=== PATIENT | female | born 1960 | race Caucasian/White ===

== ENCOUNTER 2020-06-25 22:23 | Inpatient (IN) | payer MEDICAID ==
[~2020-06-25] VITALS: Ht 154.9 cm; Wt 43.0 kg
--- NOTE | 2020-06-25 22:44 | NUR ---
RESPIRATORY CALLED AT THIS TIME FOR BREATHING TREATMENT AND ABG
[2020-06-25 23:08] LABS: BASOPHILS 0.2 % (0-2); EOSINOPHILS 0.5 % (0-7); HEMATOCRIT 40.1 % (36.0-48.0); HEMOGLOBIN 13.5 g/dL (12-16); IMMATURE GRANULOCYTES 0.6 % (0-5); LYMPHOCYTE ABS# 1.46 10x3/uL (1.18-3.74); LYMPHOCYTES 13.6 % (15-50); MCH 28.8 pg (26.0-34.0); MCHC 33.7 g/dL (31.0-37.0); MCV 85.5 fL (80.0-100.0); MEAN PLATELET VOLUME 10.7 fL (7.4-10.4); NEUTROPHIL ABS# 7.99 10x3/uL (1.56-6.13); NEUTROPHILS 74.1 % (40-80); PLATELET COUNT 276 10x3/uL (130-400); RBC 4.69 10x6/uL (4.00-5.40); RDW 12.7 % (11.5-14.5); WBC 10.8 10x3/uL (4.8-10.8)
[2020-06-25 23:15] VITALS: BP 185/70
[2020-06-25 23:17] LABS: ANION GAP 8.4 mmol/L (8-16); CARBON DIOXIDE 32.9 mmol/L (21.0-32.0); CREATININE - SERUM 0.9 mg/dL (0.6-1.3); POTASSIUM - SERUM 3.3 mmol/L (3.5-5.1)
[2020-06-25 23:25] LABS: ALBUMIN 3.2 g/dL (3.4-5.0); BILIRUBIN - TOTAL 0.3 mg/dL (0.2-1.3); PROTEIN - SERUM 7.2 g/dL (6.4-8.2)
[2020-06-25 23:26] LABS: TROPONIN-I 0.016 ng/mL (0.000-0.060)
[2020-06-25 23:30] VITALS: BP 148/57
[2020-06-26 00:30] VITALS: BP 162/113
--- NOTE | 2020-06-26 01:07 | NUR ---
REPORT CALLED TO LOU RICARDO AT THIS TIME, WAITING ON RESULTS OF CTA TO [facility] EPT TO FLOOR.
[2020-06-26] MEDS ORDERED: NEURONTIN600 MG PO ×2 (02:28→02:29)
[2020-06-26 02:32] VITALS: BP 146/111; BMI 17.9
--- NOTE | 2020-06-26 02:39 | NUR ---
ADMISSION ASSESSMENT COMPLETE. PT HAS INVOLUNTARY MOVEMENTS, ESPICIALLY WITH UPPER BODY. SHE STATES " IT'S BECAUSE OF PLAYING WITH HER GRANDCHILDREN". DENIES ANY NEUROLOGICAL DIAGNOSIS.
--- NOTE | 2020-06-26 04:23 | NUR ---
PAGED DOCTOR FOR ORDERS
--- NOTE | 2020-06-26 07:00 | NUR ---
0700 BEDSIDE REPORT RECEIVED ASLEEP AWAKENS TO VOICE SOB [place]AG[place] O2 AT 6L/NC
[2020-06-26] MEDS ORDERED: GABAPENTIN100 MG (07:13)
[2020-06-26 07:40] VITALS: BP 151/68
--- NOTE | 2020-06-26 08:00 | NUR ---
0800INSTRUCTED ON IS USE WEAK EFFORT PULLING 250ML REFUSED SDC REFUSED LOVENOX EDUCATED PT ON PREVENTION OF BLOOD CLOTS
[2020-06-26 08:29] VITALS: BP 147/109
[2020-06-26 12:30] LABS: MAGNESIUM - SERUM 2.2 mg/dL (1.8-2.4)
[2020-06-26 12:37] LABS: APTT 29.8 SECONDS (22.8-39.4); INR 1.12 (0.85-1.17); PROTIME 13.3 SECONDS (11.6-15.0)
--- NOTE | 2020-06-26 16:00 | NUR ---
1600 PATIENT ACCIDENTALLY PULLED IV RESIGHTED TO RIGHT FOREARM
[2020-06-26 17:30] VITALS: BP 127/63
--- NOTE | 2020-06-26 19:41 | NUR ---
PATIENT RESTING IN BED WITH NO S/S OF DISTRESS. PATIENT DENIES NEEDS AT THIS TIME. BED IN LOWEST POSITION AND CALL LIGHT IN REACH. ENCOURAGED PATIENT TO CALL WITH NEEDS.
--- NOTE | 2020-06-26 20:46 | NUR ---
ADMINISTERED MEDS PER ORDERS. PATIENT SWAPNIL WELL. ENCOURAGED TO CALL WITH NEEDS.
[2020-06-27] VITALS: BP 126/48
[2020-06-27 04:00] VITALS: BP 115/55
[2020-06-27 06:50] LABS: BASOPHILS 0.1 % (0-2); EOSINOPHILS 0 % (0-7); HEMOGLOBIN 12.1 g/dL (12-16); IMMATURE GRANULOCYTES 1.1 % (0-5); LYMPHOCYTE ABS# 0.63 10x3/uL (1.18-3.74); LYMPHOCYTES 5.8 % (15-50); MCH 28.1 pg (26.0-34.0); MCHC 31.8 g/dL (31.0-37.0); MEAN PLATELET VOLUME 10.9 fL (7.4-10.4); MONOCYTES 6.8 % (2-11); NEUTROPHIL ABS# 9.42 10x3/uL (1.56-6.13); NEUTROPHILS 86.2 % (40-80); PLATELET COUNT 282 10x3/uL (130-400); RBC 4.31 10x6/uL (4.00-5.40); RDW 12.5 % (11.5-14.5); WBC 10.9 10x3/uL (4.8-10.8)
[2020-06-27 06:56] LABS: MCV 88.2 fL (80.0-100.0)
[2020-06-27 07:22] LABS: ALBUMIN 2.7 g/dL (3.4-5.0); ALKALINE PHOSPHATASE 64 U/L (30-120); ALT (SGPT) 17 U/L (10-68); BILIRUBIN - TOTAL 0.15 mg/dL (0.2-1.3); CALC OSMOLALITY 278 mosm/kg (275-300); CALCIUM 8.9 mg/dL (8.5-10.1); CHLORIDE - SERUM 101 mmol/L (98-107); CREATININE - SERUM 0.8 mg/dL (0.6-1.3); GLUCOSE 145 mg/dL (74-106); MAGNESIUM - SERUM 2.2 mg/dL (1.8-2.4); POTASSIUM - SERUM 4.9 mmol/L (3.5-5.1); PROTEIN - SERUM 6.3 g/dL (6.4-8.2); SODIUM 138 mmol/L (136-145); UREA NITROGEN 12 mg/dL (7-18); eGFR NON AFRICAN AMERICAN 78 mL/min (90-120)
[2020-06-27 08:58] VITALS: BP 136/61
--- NOTE | 2020-06-27 13:35 | NUR ---
PATIENT ON RA AND SP02 87% ON 2L/NC SP02 97%
[2020-06-27 13:53] VITALS: BP 152/65
[2020-06-27 14:11] VITALS: Ht 154.9 cm; Wt 43.0 kg
--- NOTE | 2020-06-27 15:50 | NUR ---
OT NOTE: PT COMPLETED ADL MOB WITH CGA. PT COMPLETED BED MOB WITH SBA. PT COMPLETED TOILET HYGIENE WITH MIN A. PT COMPLETED UB BATHING TASKS WITH SETUP. PT COMPLETED LB BATHING TASKS WITH MIN A. PT IS SOB WITH ADL TASK REQUIREMENT. [id number] THANK YOU,DG ROJAS
[2020-06-27 17:36] VITALS: BP 159/68
--- NOTE | 2020-06-27 18:23 | NUR ---
0700 BEDSIDE REPORT RECEIVED AWAKE ALERT ASSESSMENT COMPLETE 02 AT 3L/NC
--- NOTE | 2020-06-27 18:24 | NUR ---
0900 PT WORKING WITH PATIENT STATED PATIENT IS AD LEXA SWAPNIL WELL
--- NOTE | 2020-06-27 18:26 | NUR ---
1100 PT AMB TO BR WEARING SWAPNIL WELL
--- NOTE | 2020-06-27 18:26 | NUR ---
1730 WENT TO GIVE IV MED AND FOUND IV OUT PT NOT HAPPY WITH GETTING RESTUCK STATED SHE WANTS TI EAT HER DINNER FIRST
[2020-06-28] VITALS: BP 158/80
[2020-06-28 04:00] VITALS: BP 156/61
[2020-06-28 07:43] LABS: BASOPHILS 0.1 % (0-2); EOSINOPHILS 0 % (0-7); HEMATOCRIT 39.6 % (36.0-48.0); HEMOGLOBIN 12.8 g/dL (12-16); IMMATURE GRANULOCYTES 3.9 % (0-5); LYMPHOCYTE ABS# 1.32 10x3/uL (1.18-3.74); LYMPHOCYTES 11.8 % (15-50); MCH 28.3 pg (26.0-34.0); MCHC 32.3 g/dL (31.0-37.0); MCV 87.6 fL (80.0-100.0); MEAN PLATELET VOLUME 10.8 fL (7.4-10.4); MONOCYTES 9.7 % (2-11); NEUTROPHIL ABS# 8.33 10x3/uL (1.56-6.13); NEUTROPHILS 74.5 % (40-80); PLATELET COUNT 282 10x3/uL (130-400); RBC 4.52 10x6/uL (4.00-5.40); RDW 12.6 % (11.5-14.5); WBC 11.2 10x3/uL (4.8-10.8)
[2020-06-28 07:54] LABS: ALBUMIN 2.8 g/dL (3.4-5.0); ALKALINE PHOSPHATASE 61 U/L (30-120); ALT (SGPT) 18 U/L (10-68); BILIRUBIN - TOTAL 0.19 mg/dL (0.2-1.3); CALC OSMOLALITY 275 mosm/kg (275-300); CALCIUM 8.7 mg/dL (8.5-10.1); CARBON DIOXIDE 36.9 mmol/L (21.0-32.0); CHLORIDE - SERUM 99 mmol/L (98-107); CREATININE - SERUM 0.8 mg/dL (0.6-1.3); GLUCOSE 110 mg/dL (74-106); MAGNESIUM - SERUM 2.1 mg/dL (1.8-2.4); POTASSIUM - SERUM 4.4 mmol/L (3.5-5.1); PROTEIN - SERUM 5.8 g/dL (6.4-8.2); SODIUM 137 mmol/L (136-145); UREA NITROGEN 14 mg/dL (7-18); eGFR NON AFRICAN AMERICAN 78 mL/min (90-120)
--- NOTE | 2020-06-28 08:16 | NUR ---
ALERT AND ORIENTED. ASSESSMENT COMPLETE. DENIES NEEDS. BED LOW. CALL PHILIP AND PERSONAL ITEMS IN REACH. WILL CONTINUE TO MONITOR.
[2020-06-28 09:25] VITALS: BP 167/62
[2020-06-28 12:42] VITALS: BP 131/78
--- NOTE | 2020-06-28 13:56 | NUR ---
PT IN BED SUPINE, AAOX4 UPON ENTERING. HOOKED UP TO IV ABX, TOLERATING WELL. DENIES ANY NEEDS AT THIS TIME. BED IN LOWEST POSITION, BED RAILS X2, CALL LIGHT WITHIN REACH. WILL CONTINUE POC.
--- NOTE | 2020-06-28 15:31 | NUR ---
OT NOTE: PT COMPLETED BED MOB WITH SBA. PT COMPLETED ADL MOB WITH SBA TO TOILET. PT COMPLETED BUE AROM EXS TOLERATED. PT DOES REQUIRE REST BREAKS SECONDARY TO SOB WITH ACTIVITY. [id number] LARRY COONEY COTA
--- NOTE | 2020-06-28 16:06 | NUR ---
AAOX4 UPON ENTERING. ADMINISTERED MEDICATION, NO DIFFICULTIES. RESTING COMFORTABLY. DENIES ANY NEEDS AT THIS TIME. BED IN LOWEST POSITION, BED RAILS X2, CALL LIGHT WITHIN REACH. WILL CONTINUE POC.
[2020-06-28 18:14] VITALS: BP 152/108
[2020-06-28 20:00] VITALS: BP 150/75
--- NOTE | 2020-06-29 03:03 | NUR ---
I have reviewed this patient and I concur with the Shift Assessment completed by the Licensed Practical Nurse today this shift.
[2020-06-29 06:22] LABS: BASOPHILS 0.1 % (0-2); EOSINOPHILS 0.4 % (0-7); HEMATOCRIT 41.7 % (36.0-48.0); HEMOGLOBIN 13.3 g/dL (12-16); IMMATURE GRANULOCYTES 4.1 % (0-5); LYMPHOCYTE ABS# 1.85 10x3/uL (1.18-3.74); LYMPHOCYTES 23.7 % (15-50); MCH 28.2 pg (26.0-34.0); MCHC 31.9 g/dL (31.0-37.0); MCV 88.3 fL (80.0-100.0); MEAN PLATELET VOLUME 11.2 fL (7.4-10.4); MONOCYTES 11.6 % (2-11); NEUTROPHILS 60.1 % (40-80); PLATELET COUNT 280 10x3/uL (130-400); RBC 4.72 10x6/uL (4.00-5.40); RDW 12.5 % (11.5-14.5)
[2020-06-29 06:33] LABS: WBC 7.8 10x3/uL (4.8-10.8)
[2020-06-29 06:52] LABS: ALBUMIN 2.8 g/dL (3.4-5.0); ALKALINE PHOSPHATASE 58 U/L (30-120); ALT (SGPT) 17 U/L (10-68); BILIRUBIN - TOTAL 0.27 mg/dL (0.2-1.3); CALC OSMOLALITY 277 mosm/kg (275-300); CALCIUM 8.9 mg/dL (8.5-10.1); CARBON DIOXIDE 38.6 mmol/L (21.0-32.0); CHLORIDE - SERUM 100 mmol/L (98-107); CREATININE - SERUM 0.8 mg/dL (0.6-1.3); GLUCOSE 90 mg/dL (74-106); MAGNESIUM - SERUM 2.1 mg/dL (1.8-2.4); POTASSIUM - SERUM 4.2 mmol/L (3.5-5.1); PROTEIN - SERUM 6.1 g/dL (6.4-8.2); SODIUM 139 mmol/L (136-145); UREA NITROGEN 12 mg/dL (7-18); eGFR NON AFRICAN AMERICAN 78 mL/min (90-120)
--- NOTE | 2020-06-29 07:00 | NUR ---
WALKING ROUNDS. IN BED ON LEFT SIDE WITH EYES CLOSED. BREATHING EVEN AND NONLABORED, NO S/S OF DISTRESS NTOED AT THIS TIME. BED IN LOWEST POSITION, BED RAILS X2, CALL LIGHT WITHIN REACH. WILL CONTINUE POC.
--- NOTE | 2020-06-29 08:27 | NUR ---
AAOX4 UPON ENTERING. ADMINISTERED MORNING MEDICATION, NO DIFFICULTIES. RESTING COMFORTABLY. DENIES ANY NEEDS AT THIS TIME. WILL CONTINUE POC.
[2020-06-29 09:01] VITALS: BP 138/78
--- NOTE | 2020-06-29 11:18 | NUR ---
AAOX4 UPON ENTERING. HUNG IV ABX. COMPLAINS THAT IT HANDY. HUNG 500ML NS TO HELP WITH BURNING. HAPPY WITH THIS INTERVENTION. DENIES FURTHER NEEDS. WILL CONTINUE POC.
--- NOTE | 2020-06-29 12:33 | NUR ---
HUNG IV ABX, TOLERATING WELL. RESTING IN BED. DENIES FURTHER NEEDS AT THIS TIME. WILL CONTINUE POC.
[2020-06-29 13:55] VITALS: BP 126/67
--- NOTE | 2020-06-29 14:09 | NUR ---
Nutrition follow-up: Diet order: Regular PO intake is slowly improving Labs reviewed Wt: 94# +BM PO intake very slowly improving Recommendations: RDN ordering Ensure with meals May consider an appetite stimulant if po intake continues to be < 75% of meals RDN follow-up: 07/01/20
--- NOTE | 2020-06-29 15:16 | NUR ---
RESTING COMFORTABLY IN BED. ADMINISTERED MEDICATION, NO DIFFICULTIES. DENIES NEEDS. WILL CONTINUE POC.
--- NOTE | 2020-06-29 15:21 | NUR ---
OT NOTE: PT COMPLETED BUE AROM EXS. PT COMPLETED SUPINE TO SIT WITH SPV. PT COMPLETED FACE HYGIENE WITH SPV. PT COMPLETED SIT TO STAND WITH SPV. [phone] LARRY COONEY COTA
--- NOTE | 2020-06-29 17:08 | NUR ---
PRN TYLENOL FOR HEADACHE. RESTING COMFORTABLY IN BED. DENIES ANY NEEDS AT THIS TIME. WILL CONTINUE POC.
[2020-06-29 17:46] VITALS: BP 157/34
--- NOTE | 2020-06-29 19:24 | NUR ---
I have reviewed this patient and I concur with the Shift Assessment completed by the Licensed Practical Nurse today this shift.
[2020-06-29 20:00] VITALS: BP 173/86
--- NOTE | 2020-06-30 03:55 | NUR ---
I have reviewed this patient and I concur with the Shift Assessment completed by the Licensed Practical Nurse today this shift.
[2020-06-30 04:00] VITALS: BP 154/75
[2020-06-30 06:17] LABS: BASOPHILS 0.3 % (0-2); EOSINOPHILS 0.5 % (0-7); HEMATOCRIT 40.3 % (36.0-48.0); HEMOGLOBIN 13.3 g/dL (12-16); IMMATURE GRANULOCYTES 4.5 % (0-5); LYMPHOCYTE ABS# 1.73 10x3/uL (1.18-3.74); LYMPHOCYTES 22.9 % (15-50); MCH 28.7 pg (26.0-34.0); MEAN PLATELET VOLUME 10.8 fL (7.4-10.4); MONOCYTES 11.5 % (2-11); NEUTROPHIL ABS# 4.54 10x3/uL (1.56-6.13); NEUTROPHILS 60.3 % (40-80); PLATELET COUNT 240 10x3/uL (130-400); RBC 4.63 10x6/uL (4.00-5.40); RDW 12.6 % (11.5-14.5); WBC 7.5 10x3/uL (4.8-10.8)
[2020-06-30 06:33] LABS: ALBUMIN 2.8 g/dL (3.4-5.0); BILIRUBIN - TOTAL 0.27 mg/dL (0.2-1.3); CALCIUM 8.7 mg/dL (8.5-10.1); CARBON DIOXIDE 38.1 mmol/L (21.0-32.0); CREATININE - SERUM 0.9 mg/dL (0.6-1.3); MAGNESIUM - SERUM 2.1 mg/dL (1.8-2.4); POTASSIUM - SERUM 4.1 mmol/L (3.5-5.1); PROTEIN - SERUM 6.1 g/dL (6.4-8.2)
[2020-06-30 08:57] VITALS: BP 153/84; BP 160/89
[2020-06-30] MEDS ORDERED: NICODERM CQ1 EAC3 TRANSDERM (10:10)
[2020-06-30] MEDS ORDERED: IPRAT-ALBUT 0.5-3 ML UPD (10:10)
[2020-06-30] MEDS ORDERED: OMNICEF300 MG PO (10:10)
[2020-06-30] MEDS ORDERED: ZITHROMAX250 MG PO (10:10)
[2020-06-30] MEDS ORDERED: PERFOROMIS20 MCG/21 UPD (10:10)
[2020-06-30] MEDS ORDERED: PREDNISONE10 MG PO (10:11)
[2020-06-30] MEDS ORDERED: DELSYM30 MG/5 M1 PO (10:11)
[2020-06-30] MEDS ORDERED: PULMICORT0.5 MG/21 UPD (10:11)
[2020-06-30] MEDS ORDERED: MUCINEX600 MG PO (10:11)
[2020-06-30] MEDS ORDERED: FLORAJEN DIGES1 EACH PO (10:11)
[2020-06-30] MEDS ORDERED: PROTONIX40 MG PO (10:11)
[2020-06-30] MEDS ORDERED: TESSALON PERLE100 MG PO (10:11)
--- NOTE | 2020-06-30 11:50 | NUR ---
DISCHARGE INSTRUCTION REVIEWED AND SIGNED WITH PT, ALL QUESTIONS ANSWERED, PT VERBALIZED UNDERSTANDING, IV REMOVED, TIP INTACT, COVERED WITH GAUZE AND TAPE, PT AWAITING RIDE
--- NOTE | 2020-06-30 12:12 | MORECARE ---
CASE MANAGEMENT DISCHARGE SUMMARY PATIENT: CHRISTY SALDANA UNIT: [id number] ADM DATE: 06/26/20 AGE: 60 : 62 SEX: F ROOM/BED: [facility] AUTHOR: SERGE ARGUETA PHYSICIAN: REFERRING PHYSICIAN: RYDER SERNA DO DATE OF SERVICE: 06/30/20 Case Management Discharge Planning Summary DCP REVIEW SUMMARY ANTICIPATED D/C DATE: EXPECTED LOS : CASE STATUS: DCP Initiated INITIAL REVIEW: 06/26/2020 INITIAL REVIEWER: Roxanna Saini FINAL DISCHARGE DISPOSITION: : FINAL REVIEWER: FINAL REVIEW DATE: DCP Focus Questions & Answers QUESTION: ANSWER : PROVIDER NETWORKING REVIEW DATE: 06/30/2020 SERVICE TYPE: Durable Medical Equipment REVIEWER: Roxanna Saini PROVIDER: FINAL PROVIDER? : FINAL DATE/TIME: CT PATIENT: CHRISTY SALDANA ENCOUNTER: [id number] MEDICAL RECORD#: [id number] ADMISSION DATE: 06/26/2020 DISCHARGE DATE: ATTENDING MD: RYDER VIVAS : AGE: 60 MARITAL STATUS: S DC PLAN ID: [id number] FACILITY: [facility] PRINTED ON: 06/30/20 12:12 CT All edits/amendments must be made on the electronic document DICTATION DATE: 06/30/201211 CHEMICAL STRENGTH TESTER: ANTHONY 06/30/201211 RPT#: [id number] DC DATE: STATUS: ADM IN [facility] [address] [place] [address] END OF REPORT
--- NOTE | 2020-06-30 12:25 | MORECARE ---
CASE MANAGEMENT DISCHARGE SUMMARY PATIENT: CHRISTY SALDANA UNIT: [id number] ADM DATE: 06/26/20 AGE: 60 : 62 SEX: F [facility]: SERGE ARGUETA PHYSICIAN: REFERRING PHYSICIAN: RYDER SERNA DO DATE OF SERVICE: 06/30/20 Case Management Discharge Planning Summary COMMENTS ENTERED DATE: 06/30/20 12:12 CT COMMENT TYPE: Discharge Planning REVIEWER: Roxanna Saini CM MET WITH PATIENT AT BEDSIDE ABOUT DC PLANNING NEEDS. PATIENT WILL NEED OXYGEN AND NEBULIZER, [facility] IS DELIVERING OXYGEN TO PATIENT ROOM. PATIENT PLANS TO DC TO HOME TODAY AND STATES HER BOYFRIEND IS WORKING ON GETTING HER A RIDE HOME. HER PCP IS DR. LANDERS AT [facility] AND SHE USES [facility]. HER PHONE NUMBER ON HER FACE SHEET IS WRONG. SHE STATES IT IS [phone]. SHE STATES HER AND HER BOYFRIEND LIVE TOGETHER AND IT IS A SAFE DISCHARGE. CM TO FOLLOW AND ASSIST NEEDED. DCP REVIEW SUMMARY ANTICIPATED D/C DATE: EXPECTED LOS : CASE STATUS: DCP Initiated INITIAL REVIEW: 06/26/2020 INITIAL REVIEWER: Roxanna Saini FINAL DISCHARGE DISPOSITION: : FINAL REVIEWER: FINAL REVIEW DATE: DCP [employer] Questions & Answers QUESTION: ANSWER : PROVIDER NETWORKING REVIEW DATE: 06/30/2020 SERVICE TYPE: Durable Medical Equipment REVIEWER: Roxanna Saini PROVIDER: FINAL PROVIDER? : FINAL DATE/TIME: CT PATIENT: CHRISTY SALDAAN ENCOUNTER: [id number] MEDICAL RECORD#: [id number] ADMISSION DATE: 06/26/2020 DISCHARGE DATE: ATTENDING MD: RYDER VIVAS : AGE: 60 MARITAL STATUS: S DC PLAN ID: [id number] FACILITY: [facility] PRINTED ON: 06/30/20 12:25 CT All edits/amendments must be made on the electronic document DICTATION DATE: 06/30/201224 [employer] PROFESSOR: ANTHONY 06/30/20 1225 RPT#: [id number] DC DATE: STATUS: ADM IN [facility] [address] [place] [address] END OF REPORT
--- NOTE | 2020-06-30 13:00 | NUR ---
PT LEFT VIA WHEELCHAIR ASSISTED BY HOSPITAL STAFF
--- NOTE | 2020-07-01 14:07 | MORECARE ---
CASE MANAGEMENT DISCHARGE SUMMARY PATIENT: CHRISTY SALDANA UNIT: [id number] ADM DATE: 06/26/20 AGE: 60 : 62 SEX: F ROOM/BED: [facility] AUTHOR: SERGE ARGUETA PHYSICIAN: REFERRING PHYSICIAN: RYDER SERNA DO DATE OF SERVICE: 07/01/20 Case Management Discharge Planning Summary COMMENTS ENTERED DATE: 06/30/20 12:12 CT COMMENT TYPE: Discharge Planning REVIEWER: Roxanna Saini CM MET WITH PATIENT AT BEDSIDE ABOUT DC PLANNING NEEDS. PATIENT WILL NEED OXYGEN AND NEBULIZER, [facility] IS DELIVERING OXYGEN TO PATIENT ROOM. PATIENT PLANS TO DC TO HOME TODAY AND STATES HER BOYFRIEND IS WORKING ON GETTING HER A RIDE HOME. HER PCP IS DR. LANDERS AT [facility] AND SHE USES [facility]. HER PHONE NUMBER ON HER FACE SHEET IS WRONG. SHE STATES IT IS [phone]. SHE STATES HER AND HER BOYFRIEND LIVE TOGETHER AND IT IS A SAFE DISCHARGE. CM TO FOLLOW AND ASSIST NEEDED. DCP REVIEW SUMMARY ANTICIPATED D/C DATE: EXPECTED LOS : CASE STATUS: DCP Initiated INITIAL REVIEW: 06/26/2020 INITIAL REVIEWER: Roxanna Saini FINAL DISCHARGE DISPOSITION: : FINAL REVIEWER: FINAL REVIEW DATE: DCP [employer] Questions & Answers QUESTION: ANSWER : PROVIDER NETWORKING REVIEW DATE: 06/30/2020 SERVICE TYPE: Durable Medical Equipment REVIEWER: Roxanna Saini PROVIDER: FINAL PROVIDER? : FINAL DATE/TIME: CT PATIENT: CHRISTY SALDANA ENCOUNTER: [id number] MEDICAL RECORD#: [id number] ADMISSION DATE: 06/26/2020 DISCHARGE DATE: 06/30/2020 ATTENDING MD: RYDER VIVAS : AGE: 60 MARITAL STATUS: S DC PLAN ID: [id number] FACILITY: [facility] PRINTED ON: 07/01/20 14:07 CT All edits/amendments must be made on the electronic document DICTATION DATE: 07/01/201406 CLINICIAN ONCOLOGY: ANTHONY 07/01/201406 RPT#: [id number] DC DATE:06/30/20 STATUS: DIS IN [facility] [address] [place] [address] END OF REPORT
== END 2020-06-30 14:07 | disposition home or self-care (01) | DRG 193 ==
LOC: D.ER 22:23 → D.MS 06-26 00:53
PROVIDERS: Family Medicine; Student in an Organized Health Care Education/Training Program; ADMIT Family Medicine; ATTEND Family Medicine
DX: J18.9 Pneumonia, unspecified organism (principal); J96.01 Acute respiratory failure with hypoxia; J44.1 Chronic obstructive pulmonary disease with (acute) exacerbation; J44.0 Chronic obstructive pulmonary disease with (acute) lower respiratory infection; C34.90 Malignant neoplasm of unspecified part of unspecified bronchus or lung; C79.9 Secondary malignant neoplasm of unspecified site; E87.6 Hypokalemia; Z87.891 Personal history of nicotine dependence; G89.29 Other chronic pain